=== PATIENT | male | born 2000 | race Caucasian/White ===

== ENCOUNTER 2020-01-31 09:36 | Emergency (ER) | payer BC, SELFPAY ==
--- NOTE | 2020-01-31 09:39 | ED.GENADUL_ITS ---
Discharge Plan Disposition Patient Disposition: HOME Condition: Good Discharge Details Chief Complaint: Allergic Clinical Impression: Allergic reaction Primary Care Provider: Lisha,Local ED Provider: Kenia Pugh Home Meds and New Rx's Prescriptions: New prednisone 50 mg tablet 50 mg PO DAILY Qty: 4 RF: 0 Continued epinephrine [EpiPen] 0.3 mg/0.3 mL Auto-Injector See Rx Instructions .ROUTE .COMPLEX RF: 0 Discharge Instructions Instructions: General Allergic Reaction (ED) Additional Instructions: Your allergic reaction does seem to be improving. However, in an effort to prevent this from coming back, please take the prednisone as prescribed. Even if symptoms improve, please take the entire course. As discussed, this can worsen again. If you develop recurrence of your hives, shortness of breath, difficulty breathing, throat swelling or other new/worsening symptom please seek care immediately once again. Do not hesitate to use your EpiPen if these symptoms develop. If you do use your EpiPen, please seek emergent care. Otherwise, please follow-up with primary care this week for reevaluation. Discharge Data Discharge Date/Time-TO BE ENTERED AT DEPARTURE: 01/31/20 11:05 Medical Decision Making Patient is a pleasant 19-year-old otherwise healthy male presents today with complaint of allergic reaction. Patient reports that he historically had allergic reaction to bee stings. States that he typically breaks out in hives begins having difficulty breathing. He does have EpiPen but states that he did not use this. He was unclear what type of insect stung him. Indicates behind the left ear is area of sting. States that he has been having itching since then. He did take 3 Benadryl prior to arrival. Denies any difficulty breathing, shortness of breath, GI upset. On exam, patient is resting comfortably. He does have a puncture behind the left ear but no notable swelling or rash around this. No intraoral lesions, lungs are clear, no wheezing or stridor. He has 4 apparent hives on the chest wall and abdomen to the right side. Patient had not noted these. He is not itching these. Rather, patient does seem to be itching at his thighs. Patient history and exam, I am concerned the patient may be developing worsening reaction. We will augment his Benadryl with steroids and famotidine. We will hold off on epinephrine at this point as he does not appear to be having an anaphylactic reaction. He was understanding would like to proceed. Patient is feeling much improved after intervention. Did not have any worsening of his symptoms. Patient is requesting discharge. I did advise trying to keep him longer to continue to monitor which she declines. Patient does have an epinephrine pen if needed and knows that he use this. He will be continued on steroids. Did advise close follow-up with primary care, patient typically resides in [place] and will be returning today. He was given return precautions. All his questions and concerns were addressed and he is in agreement with this plan. We will continue to use Benadryl as needed for itching. HPI General Mode of arrival: ambulatory . Date/Time Provider Initiated Documentation: 01/31/20 09:39 . Limitations to Documentation: no limitations . Information obtained by: patient and RN notes reviewed . History of Present Illness 19 year old M presents to the emergency department with the chief complaint of allergic reaction to bee sting, described as moderate, Quality is described as other (itching, discomfort at sting), and is localized to the head (stung behind left ear). Patient reports no radiation. Patient started experiencing this minute(s) (30) and it has been constant. No relieving factors improve symptom(s), No exacerbating factors reported . Patient notes rash (few hives noted on right side of trunk); denies chest pain, cough, fever/chills, loss of appetite, nausea/vomiting and shortness of breath. Patient did receive the following treatments prior to arrival, other (3 b enadryl) Related Data Home Medications Medication Instructions Recorded Confirmed epinephrine [EpiPen] See Rx Instructions .ROUTE .COMPLEX 01/31/20 01/31/20 prednisone 50 mg PO DAILY #4 tab 01/31/20 Previous Rx's Medication Instructions Recorded prednisone 50 mg PO DAILY #4 tab 01/31/20 Allergies Allergy/AdvReac Type Severity Reaction Status Date / Time venom-honey bee Allergy Anaphylaxsi Unverified 01/31/20 09:52 s Review of Systems Constitutional Constitutional: Reports as per HPI, Denies chills, Denies fever(s) and Denies headache(s) Eyes Eyes: Reports as per HPI, Denies eye discharge and Denies irritation ENT Ears, Nose, Mouth, and Throat: Reports as per HPI, Denies dysphagia, Denies headache(s), Denies neck pain, Denies odynophagia, Denies sore throat, Denies throat swelling and Denies tongue swelling Cardiovascular Cardiovascular: Reports as per HPI, Denies chest pain, Denies dyspnea and Denies dyspnea on exertion Respiratory Respiratory: Reports as per HPI, Denies cough, Denies dyspnea, Denies dyspnea on exertion, Denies stridor and Denies wheezing Gastrointestinal Gastrointestinal: Reports as per HPI, Denies abdominal pain, Denies change in bowel habits, Denies dysphagia, Denies nausea, Denies odynophagia and Denies vomiting Musculoskeletal Musculoskeletal: Denies neck pain Integumentary/Breasts Skin/Breast: Reports as per HPI and Reports rash Neurologic Neurologic: Reports as per HPI and Denies headache(s) Allergic/Immunologic Allergic/Immunologic: Denies throat swelling, Denies tongue swelling and Denies wheezing [facility] Social History Smoking/Tobacco Use Status: Never Alcohol Intake: current Alcohol Intake frequency: holidays/special occasions only Alcohol type: beer Drug use: Never Substance use type: does not use Do you feel safe at home: Yes Do you feel safe in your relationship?: Yes Exam Const General: cooperative, healthy appearing, comfortable, no acute distress, well de veloped and well groomed Nutritional Appearance: average body habitus and well nourished Orientation: alert and awake [facility] Head: normal to inspection, normocephalic and atraumatic Ears: hearing grossly normal bilaterally, external ears normal and TM's normal bilaterally General nose exam: external nose normal and nares normal Face and sinus: normal facial exam, sinuses nontender and face symmetric Mouth: oral mucosae normal, lip normal, tongue normal, oropharynx normal and moist mucous membranes Teeth and gingiva: dentition normal Throat: posterior oropharynx normal, tonsils normal and uvula midline Eyes General: appearance normal, both eyes and all related structures Neck Neck: normal visual inspection, full ROM, no lymphadenopathy and no meningeal signs Resp Effort & Inspection: normal respiratory effort, able to speak in complete sentences and no respiratory distress Auscultation: clear to auscultation bilaterally, no rales, no rhonchi and no wheezes Cardio Rate: regular rate Rhythm: regular rhythm Heart Sounds: S1 normal and S2 normal Skin Rashes: rashes noted (4 hives are noted on the right side of the patient's abdomen and chest wall) Neuro General: patient alert and patient awake Cognition: normal cognition Speech: speech normal Gait: normal gait Psych Appearance: grossly normal and well kempt Mental Status: mental status grossly normal Speech and Movement: speech and movement normal
[2020-01-31 09:49] VITALS: BP 148/56; PULSE 77; RESP 16; TEMP 36.3; O2SAT 98
[2020-01-31] MEDS: Normal Saline 1,000 ML 1000 ML IV (09:58)
[2020-01-31] MEDS: methylPREDNISolone SUCC 125 MG VIAL IVP (09:59)
[2020-01-31] MEDS: FAMOTIDINE 20 MG/50 ML BAG 200 MG IVPB (10:00)
[2020-01-31 10:08] VITALS: BP 135/57; PULSE 54; RESP 16; O2SAT 100
[2020-01-31 10:30] VITALS: BP 135/62; PULSE 63; RESP 15; O2SAT 100
--- NOTE | 2020-01-31 11:03 | NUR.NOTE ---
unhooked his IV in order to use commode, IV bag remainder drained onto floor
[2020-01-31 11:04] VITALS: BP 140/76; PULSE 69; RESP 15; O2SAT 100
== END 2020-01-31 11:05 | disposition home or self-care (01) ==
PROVIDERS: Emergency Provider Physician Assistant
DX: T63.441A Toxic effect of venom of bees, accidental (unintentional), initial encounter (principal); L50.0 Allergic urticaria; L29.8 Other pruritus; Z91.030 Bee allergy status
CPT/HCPCS: 96361; 96365; 96375; 99284; J2930